=== PATIENT | female | born 1985 | race African-American/Black ===

== ENCOUNTER 2016-11-25 00:07 | Emergency (ER) | payer OTHER ==
[2016-11-25] MEDS ORDERED: Dexamethasone 4 mg/ml Vial ONE (00:25)
== END 2016-11-25 01:00 | disposition home or self-care (01) ==
LOC: ERS 00:07
DX: T78.40XA Allergy, unspecified, initial encounter (principal); D64.9 Anemia, unspecified; Z87.891 Personal history of nicotine dependence
CPT/HCPCS: 96372; J1100

== ENCOUNTER 2017-04-11 11:57 | Emergency (ER) | payer OTHER ==
[2017-04-11] MEDS ORDERED: Ketorolac Tromethamine 30 MG/ML VIAL ONE (12:25)
== END 2017-04-11 12:46 | disposition home or self-care (01) ==
LOC: ERS 11:57
DX: M62.830 Muscle spasm of back (principal); D64.9 Anemia, unspecified; F31.9 Bipolar disorder, unspecified; F17.200 Nicotine dependence, unspecified, uncomplicated
CPT/HCPCS: 96372; J1885

== ENCOUNTER 2017-06-27 00:47 | Emergency (ER) | payer OTHER ==
[2017-06-27] MEDS ORDERED: Ketorolac Tromethamine 60 MG/2 ML VIAL ONE (02:31)
[2017-06-27] MEDS ORDERED: Acetaminophen 500 MG TAB ONE (02:31)
--- NOTE | 2017-06-27 07:57 | RAD ---
THREE VIEWS RIGHT SHOULDER: HISTORY: Patient operating machinery and has pain. FINDINGS: Glenohumeral joint space is preserved. No dislocation. Visualized osseous structures do not demonst rate a fracture. IMPRESSION: No fracture or dislocation. POS: ANUJ
== END 2017-06-27 03:02 | disposition home or self-care (01) ==
LOC: ERS 00:47
DX: M54.6 Pain in thoracic spine (principal); D64.9 Anemia, unspecified; F31.9 Bipolar disorder, unspecified; F17.210 Nicotine dependence, cigarettes, uncomplicated
CPT/HCPCS: 96372; J1885

== ENCOUNTER 2019-07-31 15:53 | Emergency (ER) | payer OTHER | END 2019-07-31 16:54 | disposition left against medical advice (07) | LOC: ERS 15:53 | DX: L73.9 Follicular disorder, unspecified (principal); S40.811A Abrasion of right upper arm, initial encounter; F17.210 Nicotine dependence, cigarettes, uncomplicated | CPT/HCPCS: 99282 ==

== ENCOUNTER 2021-10-20 20:01 | Emergency (ER) | payer OTHER ==
[2021-10-20] MEDS ORDERED: Ketorolac Tromethamine 30 MG/ML VIAL ONE (21:18)
== END 2021-10-20 21:54 | disposition home or self-care (01) ==
LOC: ERS 20:01
DX: L03.031 Cellulitis of right toe (principal); F17.210 Nicotine dependence, cigarettes, uncomplicated
CPT/HCPCS: 96372; J1885

== ENCOUNTER 2022-02-07 19:30 | Emergency (ER) | payer OTHER ==
[2022-02-07] MEDS ORDERED: Acetaminophen 500 MG TAB ONE ×2 (19:47→20:22)
[2022-02-07] MEDS ORDERED: Ketorolac Tromethamine 30 MG/ML VIAL ONE (20:07)
[2022-02-07] MEDS ORDERED: Ondansetron ODT 4 MG TAB ONE (20:07)
== END 2022-02-07 21:02 | disposition home or self-care (01) ==
LOC: ERS 19:30
DX: J11.1 Influenza due to unidentified influenza virus with other respiratory manifestations (principal); F17.210 Nicotine dependence, cigarettes, uncomplicated
CPT/HCPCS: 87081; 87430; 87804; 96372; 99284; J1885; Q0162

== ENCOUNTER 2023-04-11 04:13 | Emergency (ER) | payer OTHER | END 2023-04-11 05:23 | disposition left against medical advice (07) | LOC: ERS 04:13 | DX: Z53.21 Procedure and treatment not carried out due to patient leaving prior to being seen by health care provider (principal) ==

== ENCOUNTER 2025-01-10 13:42 | Outpatient (CLI) | payer OTHER | END 2025-01-10 13:43 | disposition home or self-care (01) | LOC: MRI 13:42 | PROVIDERS: ATTEND Student in an Organized Health Care Education/Training Program | DX: M25.361 Other instability, right knee (principal); M25.462 Effusion, left knee; M24.19 Other articular cartilage disorders, other specified site; S89.92XA Unspecified injury of left lower leg, initial encounter ==